=== PATIENT | male | born 1950 | race Caucasian/White ===

== ENCOUNTER 2017-01-12 14:18 | Emergency (ER) | payer OTHER ==
[~2017-01-12 14:18] MED LIST: AMBIEN5 MG PO; ASPIRIN ADULT L81 M1 PO; EQL GARLIC OD1000 MG; MULTIPLE VITAMIN PO; VITAMIN B121000 CR PO; VITAMIN C500 M1 PO; VITAMIN D-31000 UNIT PO; ZOLOFT25 MG PO
--- NOTE | 2017-01-12 17:32 | DIAGNOSTIC IMAGING REPORT ---
PROCEDURE: CT ABDOMEN/PELVIS W/O CONTRAST INDICATION: HEMATURIA TECHNIQUE: Axial CT images were obtained through the abdomen and pelvis without IV contrast. Coronal and sagittal reformations were created. COMPARISON: None. FINDINGS: 7 mm obstructing stone in the left mid ureter at the L3-4 level. There is mild left hydronephrosis and moderate perinephric fat stranding. There are at least 3 or 4 punctate, nonobstructing lower pole calculi on the right and one in the upper pole. Punctate densities are present at the tips of the papilla throughout the left lower pole. The distal ureters and bladder appear normal. Multiple rounded hypodensities throughout both lobes of the liver of varying sizes in density, the largest in the anterior medial left lobe is ill-defined and measures approximately 2.8 cm. The largest in the right lobe is present posteriorly, appears bilobed, and measures about 2.2 cm. No biliary dilatation. Clear lung bases. Normal size heart. No hiatal hernia. The unenhanced appearance of the gallbladder, adrenal glands, pancreas and spleen is normal. The abdominal aorta is normal in its course and caliber with minor calcific atherosclerosis. There is no retroperitoneal adenopathy or mass. The stomach, upper bowel loops, and mesentery appears normal. Intact anterior abdominal wall. No free fluid, or inflammation. The prostate gland is surgically absent. Clips present along the right pelvic sidewall. No pelvic adenopathy. No free fluid. Normal appendix. Intact osseous structures. Degenerative disc change at L4-5 and L5-S1. No suspicious osseous lesions. IMPRESSION: 1. 7 mm left mid ureteral calculus causing mild hydronephrosis and moderate perinephric inflammation. 2. Numerous punctate nonobstructing intrarenal calculi bilaterally. 3. Prostatectomy. 4. Multiple hepatic hypodensities, probably cysts and a few hemangiomas. Routine hemangioma protocol CT of the abdomen is recommended for further evaluation when the patient is able. 5. Findings called to the emergency room. All CT scans at this facility use dose modulation, iterative reconstruction, and/or weight-based dosing when appropriate to reduce radiation dose to as low as reasonably achievable.
--- NOTE | 2017-01-12 17:56 | ED ORDER SUMMARY ---
..... Patient: MICKEY BOLIVAR OrderSheet [facility] VisitID: [id number] [place] [address] 66y, M Registration Date/Time: 01/12/2017 ORDER SHEET Weight: 75.7 kg (stated) Allergies: None GENERAL ORDERS: CBC w Diff Urgent (14:45 01/12/2017 EKoroleva P.A.-C) (Ack 14:50 PWeiler ER Tech1) (14:58 KPage-Kuchan R.N.) CMP Urgent (14:45 01/12/2017 EKoroleva P.A.-C) (Ack 14:50 PWeiler ER Tech1) (14:58 KPage-Kuchan R.N.) UA-Culture if indicated Urgent (14:45 01/12/2017 EKoroleva P.A.-C) (Ack 14:50 PWeiler ER Tech1) (14:58 KPage-Kuchan R.N.) Lipase Urgent (14:45 01/12/2017 EKoroleva P.A.-C) (Ack 14:50 PWeiler ER Tech1) (14:59 KPage-Kuchan R.N.) CT Abd/Pel wo Cont Urgent (16:42 01/12/2017 EKoroleva P.A.-C) (Ack 16:45 PWeiler ER Tech1) (17:07 PWeiler ER Tech1) MEDICATION ORDERS: IV FLUIDS: IV NS : initial bolus 500 mL (1000 mL/hr), then 125 mL/hr for X1 (NOW); Manohar (14:44 01/12/2017 EKoroleva P.A.-C) (15:00 KPage-Kuchan R.N.) Toradol IV 30 mg (NOW) (14:44 01/12/2017 EKoroleva P.A.-C) (15:01 KPage-Kuchan R.N.) Zofran IV 8 mg (NOW) (14:45 01/12/2017 EKoroleva P.A.-C) (15:02 KPage-Kuchan R.N.) Reglan IV 10 mg (NOW) (14:45 01/12/2017 Clifford Castellon-Lesli) (15:02 Dain Busby.N.) Dilaudid IV 1 mg (HIGH ALERT MEDICATION, NOW) (14:45 01/12/2017 Clifford Castellon-C) (15:02 Dain R.N.) ORDER SHEET NOTES: [Electronically signed by Zeinab Rodgers P.A.-C (18:38 01/12/2017)] [Electronically signed by Guadalupe Reardon R.N. (19:22 01/12/2017)] [Electronically locked/signed by Guadalupe Reardon R.N. (19:22 01/12/2017)]
--- NOTE | 2017-01-12 17:56 | ED ORDER SUMMARY ---
..... Patient: MICKEY BOLIVAR OrderSheet [facility] VisitID: [id number] [place] [address] 66y, M Registration Date/Time: 01/12/2017 ORDER SHEET Weight: 75.7 kg (stated) Allergies: None GENERAL ORDERS: CBC w Diff Urgent (14:45 01/12/2017 EKoroleva P.A.-C) (Ack 14:50 PWeiler ER Tech1) (14:58 KPage-Kuchan R.N.) CMP Urgent (14:45 01/12/2017 EKoroleva P.A.-C) (Ack 14:50 PWeiler ER Tech1) (14:58 KPage-Kuchan R.N.) UA-Culture if indicated Urgent (14:45 01/12/2017 EKoroleva P.A.-C) (Ack 14:50 PWeiler ER Tech1) (14:58 KPage-Kuchan R.N.) Lipase Urgent (14:45 01/12/2017 EKoroleva P.A.-C) (Ack 14:50 PWeiler ER Tech1) (14:59 KPage-Kuchan R.N.) CT Abd/Pel wo Cont Urgent (16:42 01/12/2017 EKoroleva P.A.-C) (Ack 16:45 PWeiler ER Tech1) (17:07 PWeiler ER Tech1) MEDICATION ORDERS: IV FLUIDS: IV NS : initial bolus 500 mL (1000 mL/hr), then 125 mL/hr for X1 (NOW); Manohar (14:44 01/12/2017 EKoroleva P.A.-C) (15:00 KPage-Kuchan R.N.) Toradol IV 30 mg (NOW) (14:44 01/12/2017 EKoroleva P.A.-C) (15:01 KPage-Kuchan R.N.) Zofran IV 8 mg (NOW) (14:45 01/12/2017 EKoroleva P.A.-C) (15:02 KPage-Kuchan R.N.) Reglan IV 10 mg (NOW) (14:45 01/12/2017 Clifford Castellon-Lesli) (15:02 Dain Busby.N.) Dilaudid IV 1 mg (HIGH ALERT MEDICATION, NOW) (14:45 01/12/2017 Clifford Castellon-C) (15:02 Dain R.N.) ORDER SHEET NOTES: [Electronically signed by Zeinab Rodgers P.A.-C (18:38 01/12/2017)] [Electronically signed by Guadalupe Reardon R.N. (19:22 01/12/2017)] [Electronically locked/signed by Guadalupe Reardon R.N. (19:22 01/12/2017)]
--- NOTE | 2017-01-12 17:56 | ED CLINICAL REPORT ---
Clinical Report - Physicians/Mid Levels [facility] [address] [place] [address] 01/12/2017 14:19 Patient: MICKEY BOLIVAR Time Seen: 14:50 Kalen 12 2016. Arrived- By private vehicle. Historian- patient. HISTORY OF PRESENT ILLNESS Chief Complaint: FLANK PAIN. This started 5 hours [employer]OR [employer] and is still present. It is described as "pain", sharp and stabbing and it is described as located in the left abdomen and the left flank. The patient has had nausea. No loss of appetite, vomiting or diarrhea. (patient reports an onset of sharp left flank and abdominal pain over the last 4-5 hours with nausea, no emesis or diarrhea.). REVIEW OF SYSTEMS No constipation, black stools, difficulty with urination, pain with urination or urinary frequency. No fever, chest pain, difficulty breathing or chills. All systems otherwise negative, except as recorded above. PAST HISTORY Problems: Atypical Chest Pain. Renal calculus. Prostate Cancer. PVC - Premature Venticular Complex(s). Herniated Disk. Hypertension. Carpal Bone Fracture. Tetanus Status. Migraine Headache. Insomnia. Depression. Additional Surgeries: Amputation. Prostatectomy. Removal of kidney stone. Sinus Surgery. Medications: Zoloft Oral. Vitamin B-12 Oral (Tablet 500 mcg) 1 tablet. Vitamins/Minerals Oral 1 pill, daily. Zolpidem Tartrate Oral (Tablet 10 mg) 1/2 tablet, at bedtime. Allergies: None. SOCIAL HISTORY Former smoker. Alcohol use. No drug use. ADDITIONAL NOTES The nursing notes have been reviewed. PHYSICAL EXAM Vital Signs: 01/12/2017 00:00 BP: 157/82. HR: 64. RR: 19. O2 saturation: 100%. Temp: 97.8 F. Pain level now: 9/10. Appearance: Alert. Anxious. Appears to be in pain. Patient in moderate distress. ENT: Nose normal. Pharynx normal. Neck: Normal inspection. CVS: Normal heart rate and rhythm. Heart sounds normal. No cardiac murmur. Respiratory: No respiratory distress. Breath sounds normal. Abdomen: Soft. Mild tenderness in the left side of the abdomen. No guarding or Jason's sign present. No organomegaly. No mass. Back: Normal inspection. No CVA tenderness. Skin: Skin warm. Normal skin color. Neuro: Oriented X 3. LABS, X-RAYS, AND EKG Abdominal CT: IMPRESSION: 1. 7 mm left mid ureteral calculus causing mild hydronephrosis and moderate perinephric inflammation. 2. Numerous punctate nonobstructing intrarenal calculi bilaterally. 3. Prostatectomy. 4. Multiple hepatic hypodensities, probably cysts and a few hemangiomas. Routine hemangioma protocol CT of the abdomen is recommended for further evaluation when the patient is able. 5. Findings called to the emergency room. All CT scans at this facility use dose modulation, iterative reconstruction, and/or weight-based dosing when appropriate to reduce radiation dose to as low as reasonably achievable. Electronically Final signed by:Rosamaria Jasso MD 01/12/2017 5:32:08 PM. Laboratory Tests: UA-Culture if indicated: (KELLI: 01/12/2017 16:09) ( MsgRcvd 01/12/2017 16:41) Final results Test Result Flag Units (Reference) URINE COLOR YELLOW URINE APPEARANCE CLEAR URINE GLUCOSE NEGATIVE (NEGATIVE) URINE BILIRUBIN NEGATIVE (NEGATIVE) URINE KETONE TRACE (NEGATIVE) URINE SPECIFIC GRAVITY 1.025 (1.010-1.030) URINE PH 6.0 (5.0-8.0) URINE PROTEIN NEGATIVE (NEGATIVE) URINE UROBILINOGEN 0.2 EU/dL (0.2-1.0) URINE NITRITE NEGATIVE (NEGATIVE) URINE BLOOD 3+ (NEGATIVE) URINE LEUK ESTERASE NEGATIVE (NEGATIVE) URINE RBC 5-10 rbc/hpf (0-1) URINE WBC 0-1 wbc/hpf (0-1) URINE EPITHELIAL CELLS RARE EPI/hpf (0-5) URINE BACTERIA MODERATE (2+ TO 3+) (NONE SEEN) URINE COMMENT CULTURE INDICATED 1+ MUCUSURINE CULTURES ARE SET-UP BASED ON THE FOLLOWING CRITERIA:POSITIVE NITRITEPOSITIVE LEUKOCYTE ESTERASEGREATER THAN 10 WHITE BLOOD CELLSMODERATE (2+) OR GREATER BACTERIA CBC w Diff: (KELLI: 01/12/2017 15:09) ( MsgRcvd 01/12/2017 15:23) Final results Test Result Flag Units (Reference) WHITE BLOOD COUNT 8.0 K/uL (4.5-11.5) RED BLOOD COUNT 4.94 M/uL (4.50-5.90) HEMOGLOBIN 15.7 gm/dL (13.5-17.5) HEMATOCRIT 46.6 % (41.0-53.0) MEAN CELL VOLUME 94 fL (80-100) MEAN CORPUSCULAR HGB 32 pg (26-34) MEAN CORPUSCULAR HGB CONC 34 g/dL (31-37) RED CELL DISTRIBUTION WIDTH 13.3 % (11.6-14.8) PLATELET COUNT 268 K/uL (150-400) NEUTROPHIL % 73.1 % (50-75) LYMPH % 14.5 L % (25-40) MONO % 8.0 % (3-14) EOSINOPHIL % 3.7 % (0-4) BASOPHIL % 0.7 % (0-2) CMP: (KELLI: 01/12/2017 15:09) ( MsgRcvd 01/12/2017 15:36) Final results Test Result Flag Units (Reference) GLUCOSE 125 H mg/dL (70-110) BUN 28 H mg/dL (7-18) CREATININE 1.2 mg/dL (0.6-1.3) Estimated GFR >60 mL/min Estimated GFR- >60 mL/min Note: Persistent reduction over 3 months in eGFR<60 mL/min/1.73 m2 defines CKD. Patients with eGFR values>=60 mL/min/1.73 m2 may also have CKD if evidence ofpersistent proteinuria. Additional information may be foundat www.kidney.org. SODIUM 136 mmol/L (136-145) POTASSIUM 4.0 mmol/L (3.5-5.1) CHLORIDE 103 mmol/L (98-107) CARBON DIOXIDE 27 mmol/L (21-32) CALCIUM 9.2 mg/dL (8.5-10.1) TOTAL PROTEIN 7.7 g/dL (6.4-8.2) ALBUMIN 4.0 g/dL (3.3-5.0) BILIRUBIN, TOTAL 0.3 mg/dL (0.0-1.0) ALKALINE PHOSPHATASE 89 U/L (46-116) AST (SGOT) 25 U/L (15-37) ALT (SGPT) 29 U/L (12-78) LIPASE 448 H U/L (73-393) . PROGRESS AND PROCEDURES Course of Care: Patient with distant history of nephrolithiasis, requiring lithotripsy procedure. Patient now with signs of hematuria. pain was controlled with Toradol, as well as Dilaudid. Patient is in no distress currently, CT will be obtained, noncontrast, signs of acute nephrolithiasis which is large, likely able to pass, with some hydronephrosis, however likely patient is afebrile with no signs of bacterial complications at this time. In addition notably patient with some hepatic hypodensities hemiangioma versus cyst, he was noted of this and given a copy of his CT as well as a report. Patient is instructed to follow up with urology, he will call to follow up tomorrow, he is instructed to call the ER if he has difficulty obtaining urology appointment. 01/12/2017 17:14 HR: 61. RR: 15. O2 saturation: 100%. Patient is stable. Patient/family counseled. Disposition: Discharged. CLINICAL IMPRESSION Left renal colic in the left ureter with a single calculus with hydronephrosis. Hepatic Hypodensities on CT. INSTRUCTIONS Drink plenty of fluids. (RETURN if fevers/ uncontrolled pain please UROLOGY: [phone] call first if problems, try urology through your PCP If still problems call er to help with appointment: [phone]). Warnings: Further evaluation is necessary. Prescription Medications: Zofran (orally disintegrating tablets) 4 mg: take 1 orally every 6 hours for 5 days as needed for nausea and vomiting. Dispense fifteen (15). No refill. Substitution is permissible. Percocet 5 mg/325 mg: take 1 tablet orally every 6 hours. Dispense twenty-five (25). No refill. Substitution is permissible. Flomax 0.4 mg: take 1 orally every 24 hours. Dispense ten (10). No refills. Substitution is permissible. Follow-up: Follow up with a specialist. (Electronically signed by Zeinab Rodgers P.A.-C 01/12/2017 18:38)
--- NOTE | 2017-01-12 17:56 | ED NURSING NOTES ---
Clinical Report - Nurses [facility] [address] [place] [address] 01/12/2017 14:19 Patient: MICKEY BOLIVAR TRIAGE Triage time 14:40 Jan 12 2017. Chief Complaint: (PT sudden onset of left sided flank pain at 1130 today, hx of renal stones). SEPSIS SCREEN: Sepsis Screen. Negative (no infection suspected/documented). --14:46 Alicia Bingham R.N. Acuity: LEVEL 3. 14:46 01/12/17. --15:08 Alicia Bingham R.N. 00:00 01/12/17. BP: 157/82. HR: 64. RR: 19. O2 saturation: 100%. Temp: 97.8 F. Pain level now: 04/12. --15:08 Alicia Bingham R.N. Weight: 75.7 kg stated. Height/Length: 68 inches Per Patient. BMI: 25.4. --14:41 Alicia Bingham R.N. Medications Vitamin B-12 Oral (Tablet 500 mcg) 1 tablet. Vitamins/Minerals Oral 1 pill, daily. Zolpidem Tartrate Oral (Tablet 10 mg) 1/2 tablet, at bedtime. --14:42 Alicia Bingham R.N. Zoloft Oral. --14:42 Alicia Bingham R.N. Allergies None. --14:44 Alicia Bingham R.N. History Arrived by private vehicle. Historian: patient. Accompanied by family. Onset. (1130). --14:46 Alicia Bingham R.N. The patient has had nausea. No vomiting. Last oral intake by patient was (1100 today). PAST MEDICAL HX: Immunizations: up-to-date. SOCIAL HX: Former smoker, end date 1976. Occasional alcohol use. No drug use. No known contact with a sick individual. ABUSE ASSESSMENT: No report of abuse. SELF HARM ASSESSMENT: A self harm assessment was performed. The patient answered "no" to the question "Do you have thoughts of harming or killing yourself?". FALL RISK ASSESSMENT: Fall risk assessment completed. No fall risk identified. NUTRITIONAL RISK ASSESSMENT: The nutritional risk assessment revealed no deficiencies. FUNCTIONAL ASSESSMENT: Functional assessment: no impairments noted. LEARNING NEEDS ASSESSMENT: The learning needs assessment revealed no barriers. SKIN INTEGRITY ASSESSMENT: Skin integrity risk assessment completed. No skin integrity risk identified. --15:08 Alicia Bingham R.N. PROBLEMS: Atypical Chest Pain. Renal calculus. Prostate Cancer. PVC - Premature Venticular Complex(s). Herniated Disk. Hypertension. Carpal Bone Fracture. Tetanus Status. Migraine Headache. Insomnia. Depression. --14:44 Alicia Bingham R.N. Interventions ID band on patient. --14:46 Alicia Bingham R.N. ID band on patient. To treatment room. --15:08 Alicia Bingham R.N. PHYSICAL ASSESSMENT Ambulatory to room. Patient gowned. GENERAL / NEURO / PSYCH: Alert. Oriented X 4. Appears in pain and in distress. HEENT: Mucous membranes are pink. RESPIRATORY: Respiratory distress (holding his breath 2nd to pain). CVS: Capillary refill less than 2 seconds. GI / : Abdomen soft and nontender. SKIN: Skin is warm and dry. --15:08 Alicia Bingham R.N. NURSING PROGRESS NOTES 14:54 01/12/2017 Site #1 started via IV in the right antecubital space with an 20g angiocath; one attempt. Blood drawn: rainbow set. Labeled in the presence of the patient and sent to the lab. Saline lock flushed with saline. --14:59 Alicia Bingham R.N. Patient identifiers checked. Call light placed in reach. Side rails up x 1. Bed placed in lowest position. Brakes of bed on. ( PA in room during triage). --15:09 Alicia Bingham R.N. Reassessment after medication administered. He is calm and resting quietly and has had no adverse reaction. ( pt with pain now 08/12, "i can still feel it so I will at least give it a one" s/o at bedside, warm blankets provided for comfort, call light in hand, pt aware of need for urine -). --15:10 Alicia Bingham R.N. 14:54 01/12/17. Pulse oximeter and NIBP monitor placed on patient; monitor alarms on (pt on O2 monitor and bp prior to narcotic pain meds). --15:14 Alicia Bingham R.N. 14:56 01/12/2017 Toradol IVP 30 mg given. via site #1. IV patency established. IV site checked: no pain, redness, or swelling. IV flushed thoroughly pre- and post-medication administration. IVP given by RN. --15:01 Alicia Bingham R.N. 14:57 01/12/2017 Zofran (Ondansetron HCl) IVP 8 mg given. via site #1. Allergies verified and confirmed 5 rights. IV patency established. IV site checked: no pain, redness, or swelling. IV flushed thoroughly pre- and post-medication administration. IVP given by RN. --15:02 Alicia Bingham R.N. 14:57 01/12/2017 Dilaudid (HYDROmorphone HCl PF) IVP 1 mg given. via site #1. Allergies verified, confirmed 5 rights and sedative warning given to the patient and patient's family. IV patency established. IV site checked: no pain, redness, or swelling. IV flushed thoroughly pre- and post-medication administration. IVP given by RN. --15:02 Alicia Bingham R.N. 14:59 01/12/2017 Started bag #1 1000 mL IV Fluids IV NS (Saline); at 999 mL/hr via site #1 via IV pump. Allergies verified and confirmed 5 rights. IV patency established. IV site checked: no pain, redness, or swelling. IV flushed thoroughly pre- and post-medication administration (initial bolus of 500ml infusing). --15:00 Alicia Bingham R.N. 15:02 01/12/2017 Reglan (Metoclopramide HCl) IVP 10 mg given. via site #1. Allergies verified and confirmed 5 rights. IV patency established. IV site checked: no pain, redness, or swelling. IV flushed thoroughly pre- and post-medication administration. IVP given by RN. --15:02 Alicia Bingham R.N. Patient waiting for lab results. --15:14 Alicia Bingham R.N. 15:48 01/12/17. BP: 132/64. HR: 77. RR: 14. O2 saturation: 97% on room air. Pain level now: 0/10. --15:49 Sawyer Sloan R.N. ( Covering for Pt's Primary RN, introduced self, Pt is resting comfortably, checked VSS, spouse at bedside, Pt denies needs, he is aware of need for urine sample, states he cannot go at this time, no current needs, Pt reports his pain is 0/10.). --15:51 Sawyer Sloan R.N. Patient waiting for CT results. --17:14 Alicia Bingham R.N. Reassessment after medication administered. He has had no adverse reaction. --17:14 Alicia Bingham R.N. Overall patient status is improved- he states feels better. --17:14 Alicia Bingham R.N. 17:14 01/12/17. HR: 61. RR: 15. O2 saturation: 100%. --17:15 Alicia Bingham R.N. 18:20. Reassessment after fluids administered, procedure and medication administered. He is resting quietly. Overall patient status is improved- he states feels better (pt given disc of his CT and the radiologist written report for his follow-up). SKIN: Skin is warm and dry. --19:21 Guadaluep Reardon R.N. DISPOSITION / DISCHARGE 18:20 01/12/17. BP: 108/73. HR: 58. RR: 16. O2 saturation: 98% on room air. --19:19 Guadalupe Reardon R.N. Departure time: 1820. Condition at departure: improved and stable. No learning barriers present. Discharge instructions provided and reviewed with the patient and spouse. Reviewed medication(s). Prescription(s) given to the patient. Patient and spouse verbalized understanding. Written instructions provided in Swedish. The patient was discharged home and accompanied by spouse. He left the Emergency Department ambulatory and via private vehicle. FALL RISK ASSESSMENT: Fall risk assessment completed. No fall risk identified. --19:19 Guadalupe Reardon R.N. 18:20 01/12/2017 Site #1 removed upon discharge. Catheter intact. Bandaid applied. --19:19 Guadalupe Reardon R.N. 18:20 01/12/2017 IV Fluids IV NS Discontinued: bag #1 discontinued upon discharge. Total amount infused: 750 mL. --19:20 Guadalupe Reardon R.N. Locked/Released at 01/12/2017 19:22 by Guadalupe Reardon R.N.
--- NOTE | 2017-01-12 19:22 | ED MAR SUMMARY ---
..... Medication Administration Record [facility] [address] [place] [address] Patient: MICKEY BOLIVAR Visit ID: [id number] 66y, M Weight: 75.7 kg Height/Length: 68 in BMI: 25.4 ALLERGIES: None Given 14:56 01/12/2017 Alicia Bingham R.N. Medication Administered: TORADOL [IVP], Dose: 30 mg IVP, Site: #1 right AC. Medication Ordered: Toradol IV 30 mg (NOW). Given 14:57 01/12/2017 Alicia Bingham R.N. Medication Administered: ZOFRAN [IVP] (ONDANSETRON HCL), Dose: 8 mg IVP, Site: #1 right AC. Medication Ordered: Zofran IV 8 mg (NOW). Given 14:57 01/12/2017 Alicia Bingham R.N. Medication Administered: DILAUDID [IVP] (HYDROMORPHONE HCL PF), Dose: 1 mg IVP, Site: #1 right AC. Medication Ordered: Dilaudid IV 1 mg (HIGH ALERT MEDICATION, NOW). Start 14:59 01/12/2017 Alicia Bingham R.N., Stop 18:20 01/12/2017 Guadalupe Reardon R.N. Medication Administered: IV NS (SALINE), Dose: IV Fluids, Rate: 999 mL/hr, Dispensed: 1000 mL bag, Site: #1 right AC. Medication Ordered: IV NS : initial bolus 500 mL (1000 mL/hr), then 125 mL/hr for X1 (NOW); Manohar. Given 15:02 01/12/2017 Alicia Bingham R.N. Medication Administered: REGLAN [IVP] (METOCLOPRAMIDE HCL), Dose: 10 mg IVP, Site: #1 right AC. Medication Ordered: Reglan IV 10 mg (NOW).
--- NOTE | 2017-01-12 19:22 | ED DISCHARGE INSTRUCTIONS ---
Patient: MICKEY BOLIVAR General Instructions [facility] VisitID: [id number] [place] [address] 66y, M Registration Date/Time: 01/12/2017 Left renal colic in the left ureter with a single calculus with hydronephrosis. Hepatic Hypodensities on CT. INSTRUCTIONS Drink plenty of fluids. (RETURN if fevers/ uncontrolled pain please UROLOGY: [phone] call first if problems, try urology through your PCP If still problems call er to help with appointment: [phone]). Warnings: Further evaluation is necessary. Prescription Medications: Zofran (orally disintegrating tablets) 4 mg: take 1 orally every 6 hours for 5 days as needed for nausea and vomiting. Dispense fifteen (15). No refill. Substitution is permissible. Percocet 5 mg/325 mg: take 1 tablet orally every 6 hours. Dispense twenty-five (25). No refill. Substitution is permissible. Flomax 0.4 mg: take 1 orally every 24 hours. Dispense ten (10). No refills. Substitution is permissible. Follow-up: Follow up with a specialist. ADDITIONAL INFORMATION Kidney Stone (W/ Colic) The sharp cramping pain and nausea/vomiting that you have is due to a small stone which has formed in the kidney and is now passing down a narrow tube (ureter) on its way to your bladder. Once it reaches your bladder, the pain will stop. The stone may pass in your urine stream in one piece. [The size may be 1/16" to 1/4" (1-6mm)]. Or, the stone may also break up into kenny fragments which you may not even notice. Once you have had a kidney stone, you are at risk for developing another one in the future. Home Care: Drink plenty of fluids (at least 8 to 10 glasses of water a day). Most stones will pass on their own, but may take from a few hours to a few days. Sometimes the stone is too large to pass by itself and special methods will have to be used to remove the stone. Each time you urinate, do so in a jar. Pour the urine from the jar through the strainer and into the toilet. Continue doing this until 24 hours after your pain stops. By then, if there was a kidney stone, it should pass from your bladder. Some stones dissolve into sand-like particles and pass right through the strainer. In that case, you wont ever see a stone. Save any stone that you find in the strainer and bring it to your doctor for analysis. It may be possible to prevent certain types of stones from forming. Therefore, it is important to know what kind of stone you have. Try to stay as active as possible since this will help the stone pass. Do not stay in bed unless your pain prevents you from getting up. You may notice a red, pink or brown color to your urine. This is normal while passing a kidney stone. Follow Up with your doctor or return to this facility if the pain lasts more than 48 hours. Get Prompt Medical Attention if any of the following occur: Pain that is not controlled by the medicine given Repeated vomiting or unable to keep down fluids Weakness, dizziness or fainting Fever of 100.4F (38C) or higher, or as directed by your healthcare provider Passage of solid red or brown urine (can't see through it) or urine with lots of blood clots Unable to pass urine for 8 hours and increasing bladder pressure Blood In The Urine Blood in the urine ("hematuria") has many possible causes. If it occurs after an injury (such as a car accident or fall), it is most often a sign of bruising to the kidney or bladder. Common medical causes of blood in the urine include urinary tract infection, kidney stone, inflammation, tumors, or certain other diseases of the kidney or bladder. Menstruation can cause blood to appear in the urine sample, although it is not coming from the urinary tract. If only a trace amount of blood is present, it will show up on the urine test, even though the urine may be yellow and not pink or red. This may occur with any of the above conditions, as well as heavy exercise or high fever. In this case, your doctor may want to repeat the urine test on another day. This will show if the blood is still present. If so, then other tests can be done to find out the cause. Home Care: If your urine does not appear bloody (pink, brown or red) then you do not need to restrict your activity in any way. If you can see blood in your urine, rest and avoid heavy exertion until your next exam. Do not use aspirin or anti-inflammatory medicine like ibuprofen (Motrin, Advil) or naproxen (Naprosyn, Aleve). These thin the blood and may increase bleeding. Follow Up with your doctor or as advised by our staff. If you were injured and had blood in your urine, you should have a repeat urine test in 1-2 days. Contact your doctor or return to this facility for this test. [NOTE: A radiologist will review any X-rays that were taken. We will notify you of any new findings that may affect your care.] Get Prompt Medical Attention if any of the following occur: Bright red blood or blood clots in the urine (if a new symptom) Weakness, dizziness or fainting New groin, abdominal or back pain Fever of 100.4F (38C) or higher, or as directed by your healthcare provider Repeated vomiting Bleeding from nose, gums or easy bruising Oxycodone Hydrochloride, Acetaminophen Oral tablet What is this medicine? ACETAMINOPHEN; OXYCODONE (a set a ALY jalyn fen; ox i KOE done) is a pain reliever. It is used to treat mild to moderate pain. How should I use this medicine? Take this medicine by mouth with a full glass of water. Follow the directions on the prescription label. Take your medicine at regular intervals. Do not take your medicine more often than directed. Talk to your [employer] regarding the use of this medicine in children. Special care may be needed. Patients over 65 years old may have a stronger reaction and need a smaller dose. What side effects may I notice from receiving this medicine? Side effects that you should report to your doctor or health hospice patient care secretary as soon as possible: allergic reactions like skin rash, itching or hives, swelling of the face, lips, or tongue breathing difficulties, wheezing confusion light headedness or fainting spells severe stomach pain yellowing of the skin or the whites of the eyes Side effects that usually do not require medical attention (report to your doctor or health hospice patient care secretary if they continue or are bothersome): dizziness drowsiness nausea vomiting What may interact with this medicine? alcohol antihistamines barbiturates like amobarbital, butalbital, butabarbital, methohexital, pentobarbital, phenobarbital, thiopental, and secobarbital benztropine drugs for bladder problems like solifenacin, trospium, oxybutynin, tolterodine, hyoscyamine, and methscopolamine drugs for breathing problems like ipratropium and tiotropium drugs for certain stomach or intestine problems like propantheline, homatropine methylbromide, glycopyrrolate, atropine, belladonna, and dicyclomine general anesthetics like etomidate, ketamine, nitrous oxide, propofol, desflurane, enflurane, halothane, isoflurane, and sevoflurane medicines for depression, anxiety, or psychotic disturbances medicines for sleep muscle relaxants naltrexone narcotic medicines (opiates) for pain phenothiazines like perphenazine, thioridazine, chlorpromazine, mesoridazine, fluphenazine, prochlorperazine, promazine, and trifluoperazine scopolamine tramadol trihexyphenidyl What if I miss a dose? If you miss a dose, take it as soon as you can. If it is almost time for your next dose, take only that dose. Do not take double or extra doses. Where should I keep my medicine? Keep out of the reach of children. This medicine can be abused. Keep your medicine in a safe place to protect it from theft. Do not share this medicine with anyone. Selling or giving away this medicine is dangerous and against the law. Store at room temperature between 20 and 25 degrees C (68 and 77 degrees F). Keep container tightly closed. Protect from light. This medicine may cause accidental overdose and if it is taken by other adults, children, or pets. Flush any unused medicine down the toilet to reduce the chance of harm. Do not use the medicine after the expiration date. What should I tell my health care provider before I take this medicine? They need to know if you have any of these conditions: brain tumor Crohn's disease, inflammatory bowel disease, or ulcerative colitis drink more than 3 alcohol containing drinks per day drug abuse or addiction head injury heart or circulation problems kidney disease or problems going to the bathroom liver disease lung disease, asthma, or breathing problems an unusual or allergic reaction to acetaminophen, oxycodone, other opioid analgesics, other medicines, foods, dyes, or preservatives or trying to get breast-feeding What should I watch for while using this medicine? Tell your doctor or health hospice patient care secretary if your pain does not go away, if it gets worse, or if you have new or a different type of pain. You may develop tolerance to the medicine. Tolerance means that you will need a higher dose of the medication for pain relief. Tolerance is normal and is expected if you take this medicine for a long time. Do not suddenly stop taking your medicine because you may develop a severe reaction. Your body becomes used to the medicine. This does NOT mean you are addicted. Addiction is a behavior related to getting and using a drug for a non-medical reason. If you have pain, you have a medical reason to take pain medicine. Your doctor will tell you how much medicine to take. If your doctor wants you to stop the medicine, the dose will be slowly lowered over time to avoid any side effects. You may get drowsy or dizzy. Do not drive, use machinery, or do anything that needs mental alertness until you know how this medicine affects you. Do not stand or sit up quickly, especially if you are an older patient. This reduces the risk of dizzy or fainting spells. Alcohol may interfere with the effect of this medicine. Avoid alcoholic drinks. There are different types of narcotic medicines (opiates) for pain. If you take more than one type at the same time, you may have more side effects. Give your health care provider a list of all medicines you use. Your doctor will tell you how much medicine to take. Do not take more medicine than directed. Call emergency for help if you have problems breathing. The medicine will cause constipation. Try to have a bowel movement at least every 2 to 3 days. If you do not have a bowel movement for 3 days, call your doctor or health hospice patient care secretary. Do not take Tylenol (acetaminophen) or medicines that have acetaminophen with this medicine. Too much acetaminophen can be very dangerous. Many nonprescription medicines contain acetaminophen. Always read the labels carefully to avoid taking more acetaminophen. You have been given the following additional information: Kidney Stone W/ Colic Hematuria Oxycodone Hydrochloride, Acetaminophen Oral tablet (Electronically signed by Zeinab Rodgers P.A.-C 01/12/2017 18:38)
--- NOTE | 2017-01-12 19:22 | ED MAR SUMMARY ---
..... Medication Administration Record [facility] [address] [place] [address] Patient: MICKEY BOLIVAR Visit ID: [id number] 66y, M Weight: 75.7 kg Height/Length: 68 in BMI: 25.4 ALLERGIES: None Given 14:56 01/12/2017 Alicia Bingham R.N. Medication Administered: TORADOL [IVP], Dose: 30 mg IVP, Site: #1 right AC. Medication Ordered: Toradol IV 30 mg (NOW). Given 14:57 01/12/2017 Alicia Bingham R.N. Medication Administered: ZOFRAN [IVP] (ONDANSETRON HCL), Dose: 8 mg IVP, Site: #1 right AC. Medication Ordered: Zofran IV 8 mg (NOW). Given 14:57 01/12/2017 Alicia Bingham R.N. Medication Administered: DILAUDID [IVP] (HYDROMORPHONE HCL PF), Dose: 1 mg IVP, Site: #1 right AC. Medication Ordered: Dilaudid IV 1 mg (HIGH ALERT MEDICATION, NOW). Start 14:59 01/12/2017 Alicia Bingham R.N., Stop 18:20 01/12/2017 Guadalupe Reardon R.N. Medication Administered: IV NS (SALINE), Dose: IV Fluids, Rate: 999 mL/hr, Dispensed: 1000 mL bag, Site: #1 right AC. Medication Ordered: IV NS : initial bolus 500 mL (1000 mL/hr), then 125 mL/hr for X1 (NOW); Manohar. Given 15:02 01/12/2017 lAicia Bingham R.N. Medication Administered: REGLAN [IVP] (METOCLOPRAMIDE HCL), Dose: 10 mg IVP, Site: #1 right AC. Medication Ordered: Reglan IV 10 mg (NOW).
--- NOTE | 2017-01-12 19:22 | ED MED RECONCILIATION SUMMARY ---
Patient: MICKEY BOLIVAR Medication Reconciliation Report [facility] VisitID: [id number] [place] [address] 66y, M Registration Date/Time: 01/12/2017 Weight: 75.7 kg Height/Length: 68 in. BMI: 25.4 ALLERGIES: None The patient's Home Medications are listed below: THE FOLLOWING MEDICATIONS NEED TO BE RECONCILED: Vitamin B-12 Oral (500 mcg) 1 tablet Vitamins/Minerals Oral 1 pill, daily Zoloft Oral Zolpidem Tartrate Oral (10 mg) 1/2 tablet, at bedtime The source(s) of the original Home Medication information: Not obtained. The following Medications were given to the patient in the Emergency Department: IV NS IV Fluids bolus 0, then 999 mL/hr, administered: 01/12/2017 2:59:00 PM Toradol [IVP] IVP 30 mg, administered: 01/12/2017 2:56:00 PM Zofran [IVP] IVP 8 mg, administered: 01/12/2017 2:57:00 PM Reglan [IVP] IVP 10 mg, administered: 01/12/2017 3:02:00 PM Dilaudid [IVP] IVP 1 mg, administered: 01/12/2017 2:57:00 PM The following Medications were prescribed to the patient: Zofran (orally disintegrating tablets) 4 mg: take 1 orally every 6 hours for 5 days as needed for nausea and vomiting. Dispense fifteen (15). No refill. Substitution is permissible. -- Zeinab Rodgers, P.A.-Lesli Percocet 5 mg/325 mg: take 1 tablet orally every 6 hours. Dispense twenty-five (25). No refill. Substitution is permissible. -- Zeinab Rodgers, P.A.-C Flomax 0.4 mg: take 1 orally every 24 hours. Dispense ten (10). No refills. Substitution is permissible. -- Zeinab Rodgers, P.A.-C
--- NOTE | 2017-01-12 19:22 | ED MED RECONCILIATION SUMMARY ---
Patient: MICKEY BOLIVAR Medication Reconciliation Report [facility] VisitID: [id number] [place] [address] 66y, M Registration Date/Time: 01/12/2017 Weight: 75.7 kg Height/Length: 68 in. BMI: 25.4 ALLERGIES: None The patient's Home Medications are listed below: THE FOLLOWING MEDICATIONS NEED TO BE RECONCILED: Vitamin B-12 Oral (500 mcg) 1 tablet Vitamins/Minerals Oral 1 pill, daily Zoloft Oral Zolpidem Tartrate Oral (10 mg) 1/2 tablet, at bedtime The source(s) of the original Home Medication information: Not obtained. The following Medications were given to the patient in the Emergency Department: IV NS IV Fluids bolus 0, then 999 mL/hr, administered: 01/12/2017 2:59:00 PM Toradol [IVP] IVP 30 mg, administered: 01/12/2017 2:56:00 PM Zofran [IVP] IVP 8 mg, administered: 01/12/2017 2:57:00 PM Reglan [IVP] IVP 10 mg, administered: 01/12/2017 3:02:00 PM Dilaudid [IVP] IVP 1 mg, administered: 01/12/2017 2:57:00 PM The following Medications were prescribed to the patient: Zofran (orally disintegrating tablets) 4 mg: take 1 orally every 6 hours for 5 days as needed for nausea and vomiting. Dispense fifteen (15). No refill. Substitution is permissible. -- Zeinab Rodgers, P.A.-Lesli Percocet 5 mg/325 mg: take 1 tablet orally every 6 hours. Dispense twenty-five (25). No refill. Substitution is permissible. -- Zeinab Rodgers, P.A.-C Flomax 0.4 mg: take 1 orally every 24 hours. Dispense ten (10). No refills. Substitution is permissible. -- Zeinab Rodgers, P.A.-C
== END 2017-01-12 18:20 | disposition home or self-care (01) ==
LOC: ED SRH 14:18
DX: N13.2 Hydronephrosis with renal and ureteral calculous obstruction (principal); R93.2 Abnormal findings on diagnostic imaging of liver and biliary tract; I10 Essential (primary) hypertension; Z87.442 Personal history of urinary calculi; Z79.899 Other long term (current) drug therapy
CPT/HCPCS: 90004; 90100; 90469; 92235; 95059

== ENCOUNTER 2017-01-29 15:31 | Outpatient (CLI) | payer OTHER ==
--- NOTE | 2017-01-29 17:26 | DIAGNOSTIC IMAGING REPORT ---
PROCEDURE: CT ABDOMEN W/WO CONTRAST CLINICAL INDICATION: Follow-up liver mass versus hemangioma. TECHNIQUE: Noncontrast axial images were obtained through the entire abdomen. Following 125 ml of Isovue 300 were injected intravenously, axial images were obtained of the entire abdomen in arterial, venous, and 15-minute delayed phases with sagittal and coronal reformations. COMPARISON: Comparison is made to CT abdomen and pelvis on 01/12/2017. FINDINGS: There is a 2.8 cm benign hemangioma in the ventral medial segment of the left lobe of the liver. There are multiple cysts of the liver (10-12) with largest measuring 2.3 cm (posterior right lobe). There is no evidence of soft tissue mass. Gallbladder, spleen, pancreas, and aorta are normal. There is a persistent 8 mm mid left ureteral calculus. While perirenal extravasation and resolve, there is persistent mild left hydronephrosis. Right kidney and ureter are normal. Mild degenerative change of the lumbar spine. IMPRESSION: 1. Confirmation of a 2.6 cm benign hemangioma in the medial segment, left lobe of the liver. 2. Confirmation of multiple benign hepatic cysts. 3. No evidence of hepatic mass/neoplasm. 4. There is a persistent 8 mm partially obstructing calculus in the left mid ureter, although the degree of obstruction has decreased since the prior study. Urologic consultation is recommended. All CT scans at this facility use dose modulation, iterative reconstruction, and/or weight-based dosing when appropriate to reduce radiation dose to as low as reasonably achievable.
== END 2017-01-29 23:00 | disposition home or self-care (01) ==
LOC: CT SRH 15:31
DX: D18.09 Hemangioma of other sites (principal); K76.89 Other specified diseases of liver; N20.1 Calculus of ureter